=== PATIENT | male | born 1985 | race Caucasian/White ===

== ENCOUNTER → 2016-07-27 | Outpatient (CLI) | payer SELFPAY ==
[~2016-07-27] MED LIST: ADVIL200 MG PO; PERCOCET 5-3251 EACH PO; TYLENOL325 MG PO; ULTRAM50 MG PO
== END | disposition disaster alternative care site (69) ==
LOC: GRAD 14:30
DX: N50.811 Right testicular pain (principal); N50.89 Other specified disorders of the male genital organs; I86.1 Scrotal varices

== ENCOUNTER → 2016-08-09 | Day surgery (SDC) | payer SELFPAY ==
[~2016-08-09] VITALS: Ht 162.6 cm; Wt 54.8 kg
--- NOTE | ~2016-08-09 | OR ---
PATIENT'S NAME: JOHNNY THOMPSON [facility] AGE: 30 Y [address] ROOM: [place] [address] LOCATION: [facility] ADMIT DATE: 08/09/2016 OR/Procedure Report DISCHARGE DATE: FAMILY PHYSICIAN: PHYSICIAN, TOSHA ATTENDING PHYSICIAN: Renetta Martin SURGEON: Renetta Martin MD MEDICAL CODING AUDITOR: Leonel Beltrán PA-C. DATE OF PROCEDURE: 08/09/2016 PREOPERATIVE DIAGNOSIS: Reducible left inguinal hernia. POSTOPERATIVE DIAGNOSIS: Reducible left indirect inguinal hernia. PROCEDURES PERFORMED: Robotic repair of reducible left inguinal hernia. ANESTHESIA: General endotracheal. ESTIMATED BLOOD LOSS: 10 mL. SPECIMENS: None. REASON FOR PROCEDURE: The patient is a 30-year-old gentleman, who has recently developed a painful bulge in the left groin. On exam, he had a reducible left inguinal hernia. After discussing the risks and benefits of surgery versus ongoing observation, he decided to proceed with repair of this. FINDINGS: The patient had a robotic repair of an indirect hernia. He was repaired with the 3D mesh. PROCEDURE IN DETAIL: The patient was taken to the Operating Suite and was placed in a supine position. After general endotracheal anesthesia was obtained, the abdomen was prepped with ChloraPrep and sterilely draped. Marcaine was infiltrated into the incision sites. A 1-cm transverse incision was made in the upper midline. The fascia was elevated, and a Veress needle was used to obtain a pneumoperitoneum. An 8-mm bladeless robotic trocar was then passed across the abdominal wall. The camera was then advanced through this trocar. We then placed another 8-mm trocar in the left upper quadrant, and a 12-mm trocar in the right upper quadrant. The robot was then docked to the trocars, and the camera was localized to the left inguinal hernia. Scissors were then used to divide the peritoneum from the anterior superior iliac spine to the medial ligament. A combination of sharp and blunt dissection was used to create a peritoneal flap down below the area of the hernia. The hernia sac was mobilized, and a cord lipoma was reduced. Once we had the pocket created, the 3D mesh was placed through the 12-mm trocar, and placed over the hernia defect. The mesh lay flat and in good position. A PATIENT'S NAME: JOHNNY THOMPSON [facility] AGE: 30 Y [address] ROOM: [place] [address] LOCATION: [facility] ADMIT DATE: 08/09/2016 OR/Procedure Report DISCHARGE DATE: FAMILY PHYSICIAN: PHYSICIAN, NO ATTENDING PHYSICIAN: Renetta Martin Vicryl suture was placed in Juan Daniel ligament, suturing the mesh in place. Another one was placed in the upper outer quadrant of the mesh to hold this in place as well. We had a couple of small defects in the peritoneum that we closed with Vicryl suture. We then closed the entire peritoneal opening with a V-Loc suture. The instruments were withdrawn. The pneumoperitoneum was evacuated and the trocars were withdrawn. The fascia in the right upper quadrant was closed with a Vicryl suture. The skin incisions were closed with subcuticular Monocryl. Benzoin, Steri-Strips, and gauze dressings were applied. POST-PROCEDURE PLAN: The patient will be sent to Recovery, and discharged home when awake and alert. He is to avoid any heavy lifting or strenuous activity. We gave him a prescription for Percocet for pain control. We will see him back in the office in a couple of weeks for a re-check. RENETTA MARTIN MD JTM/modl /[id number] CC: Tomas Bradley MD d: 08/09/162051 t: 08/16/16 1207, OPERATIVE SUMMARY
--- NOTE | 2016-08-09 13:24 | NUR ---
1325 REPORT TO [facility]IL[facility]. PT TO ROOM 1037. SIPS OF WATER GIVEN
== END | disposition disaster alternative care site (69) ==
LOC: GPOC 08-04 16:00 → GSDC 09:45
PROC: 0YU64JZ Supplement Left Inguinal Region with Synthetic Substitute, Percutaneous Endoscopic Approach (ICD-10-PCS; principal; 2016-08-09)
PROC: 8E0W8CZ Robotic Assisted Procedure of Trunk Region, Via Natural or Artificial Opening Endoscopic (ICD-10-PCS; 2016-08-09)
DX: K40.90 Unilateral inguinal hernia, without obstruction or gangrene, not specified as recurrent (principal); F17.210 Nicotine dependence, cigarettes, uncomplicated; Z98.890 Other specified postprocedural states
CPT/HCPCS: C1781; J0690; J7120